=== PATIENT | female | born 1995 | race Caucasian/White ===

== ENCOUNTER 2017-01-12 23:48 | Emergency (ER) | payer OTHER ==
[~2017-01-12 23:48] MED LIST: BACLOFEN10 MG PO; CLONAZEPAM1 MG PO; DEPAKENE250 MG/5 M PO; DIAMOX250 MG PO; FOSAMAX5 MG PO; KEPPRA100 MG/1 M PO; LEVOCARNITINE330 MG PO; LEVOTHYROXINE100 MCG PO; OMEGA ESSE1400 MG/5 PO; PROVENTIL,2.5 MG/3 M IH; PULMICORT0.5 MG/21 IH; REMICADE10 MG/ML IV; VALPROIC A250 MG/5 M PO
== END 2017-01-13 04:03 ==
LOC: EME → EDBD 23:48 → EME 01-13 04:03
DX: R57.1 Hypovolemic shock (principal); I46.8 Cardiac arrest due to other underlying condition; E76.22 Sanfilippo mucopolysaccharidoses; Z93.0 Tracheostomy status